=== PATIENT | female | born 1995 | race Caucasian/White ===

== ENCOUNTER 2016-09-19 23:41 | Emergency (ER) | payer BC ==
[2016-09-20] MEDS ORDERED: Ibuprofen 800 MG TAB ONE (00:14)
[2016-09-20] MEDS ORDERED: Ciprofloxacin 500 MG TAB ONE (00:14)
== END 2016-09-20 00:20 | disposition home or self-care (01) ==
LOC: NAV ERS 23:41
DX: H60.502 Unspecified acute noninfective otitis externa, left ear (principal)
CPT/HCPCS: 99282